=== PATIENT | female | born 1995 | race Caucasian/White ===

== ENCOUNTER → 2018-05-05 | Outpatient (CLI) | payer OTHER ==
[~2018-05-05] MED LIST: ACYC800 PO; ALBU90OI INH; ALPR1 PO; ASCO500 PO; AZIT250 PO; CEPH500 PO; DIAZ5 PO; DOCU100 PO; FERR325; HYDACE5 PO; HYDACE5325 PO; IBUP800 PO; LITH300C PO; LITH300ER; Macrobid 100 M100 MG PO; NAPR500 PO; NITR50 PO; ONDA4 PO; PHENA200 PO; PROM25 PO; Percocet 5-3251 EACH PO; SULTRIDS PO; TRAM50 PO; Verotin-Gr Cap1 EACH
== END | disposition home or self-care (01) ==
LOC: LAB SHORT 19:31 → LAB EV 19:31
DX: L02.01 Cutaneous abscess of face (principal)
CPT/HCPCS: 87070; 87077; 87147; 87186; 87205

== ENCOUNTER 2018-05-18 04:30 | Inpatient (IN) | payer OTHER ==
[~2018-05-18] VITALS: Ht 167.6 cm; Wt 86.3 kg
[2018-05-18 06:03] LABS: BASOPHILS ABSOLUTE AUTO 0.03 K/mm3 (0.00-0.23); BASOPHILS PERCENT AUTO 1 % (0-2); EOSINOPHILS PERCENT AUTO 2 % (0-6); Hematocrit 29.9 % (33.0-51.0); Hemoglobin 10.2 g/dL (11.5-16.0); IMMATURE GRAN ABSOLUTE AUTO 0.01 K/mm3 (0.00-0.10); IMMATURE GRAN PERCENT AUTO 0 % (0-1); LYMPHOCYTES ABSOLUTE AUTO 1.94 K/mm3 (0.84-5.20); LYMPHOCYTES PERCENT AUTO 32 % (21-46); MONOCYTES PERCENT AUTO 8 % (4-13); Mean Corpuscular HGB Conc 34.1 g/dL (31.5-36.5); Mean Corpuscular Volume 91 fL (80-100); Mean Platelet Volume 10.8 fL (9.1-12.4); NEUTROPHILS ABSOLUTE AUTO 3.46 K/mm3 (1.96-9.15); NEUTROPHILS PERCENT AUTO 57 % (41-73); Platelet Count 257 K/mm3 (150-400); RDW Coefficient Variation 12.3 % (11.7-14.2); RDW Standard Deviation 40.8 fL (35.1-46.3); Red Blood Cell Count 3.29 M/mm3 (3.80-5.20); White Blood Cell Count 6.04 K/mm3 (4.00-11.30)
[2018-05-18 06:30] LABS: Alanine Aminotransfer (ALT/SGP 10 U/L (12-78); Albumin, Blood 2.5 g/dL (3.4-5.0); Albumin/Globulin Ratio 0.6 (0.8-1.8); Alk Phos 195 U/L (50-136); Anion Gap 10 mmol/L (6-16); Aspartate Aminotrans (AST/SGOT 10 U/L (12-37); Bilirubin, Total 0.2 mg/dL (0.1-1.0); Blood Urea Nitrogen 6 mg/dL (8-24); Bun/Creatinine Ratio 9.4 (12.0-20.0); CO2, Blood 21 mmol/L (21-32); Calcium, Blood 8.2 mg/dL (8.5-10.1); Chloride, Blood 109 mmol/L (98-108); Creatinine, Blood 0.64 mg/dL (0.40-1.00); Globulin, Blood 4.1 g/dL (2.2-4.0); Glomerular Filtration Rate >60 (60-); Glucose, Blood 86 mg/dL (70-99); Potassium, Blood 3.8 mmol/L (3.5-5.5); Sodium, Blood 140 mmol/L (136-145); Total Protein, Blood 6.6 g/dL (6.4-8.2)
[2018-05-18 06:47] LABS: U Amphetamine Screen Not Detected; U Barbituate Screen Not Detected; U Benzodiazapine Screen Not Detected; U Buprenorphine Screen Not Detected; U Cannabinoids Screen Not Detected; U Cocaine Screen Not Detected; U Methadone Screen Not Detected; U Methamphetamine Screen Not Detected; U Opiates Screen Not Detected; U Oxycodone Screen DETECTED; U Phencyclidine Screen Not Detected; U Propoxyphene Screen Not Detected
[2018-05-18] MEDS ORDERED: Verotin-Gr Cap1 EACH PO (08:29)
[2018-05-19 05:38] LABS: Hematocrit 24.5 % (33.0-51.0); Hemoglobin 8.3 g/dL (11.5-16.0); Mean Corpuscular HGB 31.6 pg (26.0-34.0); Mean Corpuscular HGB Conc 33.9 g/dL (31.5-36.5); Mean Corpuscular Volume 93 fL (80-100); Platelet Count 190 K/mm3 (150-400); RDW Coefficient Variation 12.4 % (11.7-14.2); RDW Standard Deviation 42.5 fL (35.1-46.3); Red Blood Cell Count 2.63 M/mm3 (3.80-5.20); White Blood Cell Count 8.13 K/mm3 (4.00-11.30)
[2018-05-19 10:09] LABS: HBSAG SCREEN Negative (Negative)
[2018-05-19] MEDS ORDERED: IBUP800 PO (17:20)
[2018-05-20 08:11] LABS: HIV SCREEN 4TH GENERATION WRFX Non Reactive (Non Reactive)
== END 2018-05-19 18:26 | disposition home or self-care (01) | DRG 775 ==
LOC: OBS 04:30 → BC 04:30 → OBS 06:32 → BC 06:34
PROVIDERS: Obstetrics & Gynecology
PROC: 10E0XZZ Delivery of Products of Conception, External Approach (ICD-10-PCS; principal; 2018-05-18)
PROC: 0HQ9XZZ Repair Perineum Skin, External Approach (ICD-10-PCS; 2018-05-18)
PROC: 3E0R3BZ Introduction of Anesthetic Agent into Spinal Canal, Percutaneous Approach (ICD-10-PCS; 2018-05-18)
DX: O70.0 First degree perineal laceration during delivery (principal); Z3A.40 40 weeks gestation of pregnancy; Z37.0 Single live birth; Z88.1 Allergy status to other antibiotic agents; Z88.0 Allergy status to penicillin
CPT/HCPCS: 36415; 51702; 59025; 80053; 85025; 85027; 86592; 86762; 86850; 86900; 86901; 87081; 87653; J1885; J2590; J7120

== ENCOUNTER 2018-09-04 18:47 | Emergency (ER) | payer MEDICAID ==
[~2018-09-04] VITALS: Ht 165.1 cm; Wt 79.4 kg
[~2018-09-04 18:47] MED LIST changes: +Verotin-Gr Cap1 EACH PO
[2018-09-04] MEDS ORDERED: Vibramycin100 MG PO (20:19)
[2018-09-04] MEDS ORDERED: TRAM50 PO (20:19)
== END 2018-09-04 20:24 | disposition home or self-care (01) ==
LOC: ER 18:47
DX: L03.012 Cellulitis of left finger (principal); Z88.0 Allergy status to penicillin; Z88.1 Allergy status to other antibiotic agents; F17.200 Nicotine dependence, unspecified, uncomplicated
CPT/HCPCS: 99282

== ENCOUNTER 2019-04-03 21:05 | Emergency (ER) | payer OTHER ==
[~2019-04-03] VITALS: Ht 167.6 cm; Wt 77.1 kg
[~2019-04-03 21:05] MED LIST changes: +Vibramycin100 MG PO
[2019-04-03] MEDS ORDERED: GABA100 PO (21:48)
[2019-04-03] MEDS ORDERED: PROM25 PO (21:49)
[2019-04-03] MEDS ORDERED: TRAZ50 PO (21:49)
[2019-04-03] MEDS ORDERED: Monodox100 MG PO (22:05)
== END 2019-04-03 22:16 | disposition home or self-care (01) ==
LOC: ER 21:05
DX: L03.116 Cellulitis of left lower limb (principal); Z88.0 Allergy status to penicillin; Z88.1 Allergy status to other antibiotic agents; Z88.2 Allergy status to sulfonamides; Z79.899 Other long term (current) drug therapy; F31.9 Bipolar disorder, unspecified; F17.200 Nicotine dependence, unspecified, uncomplicated
CPT/HCPCS: 99283

== ENCOUNTER 2020-10-19 20:07 | Inpatient (IN) | payer OTHER ==
[~2020-10-19] VITALS: Ht 165.1 cm; Wt 97.3 kg
[~2020-10-19 20:07] MED LIST changes: +GABA100 PO; +Monodox100 MG PO; +TRAZ50 PO
[2020-10-19 21:10] LABS: BASOPHILS ABSOLUTE AUTO 0.02 K/mm3 (0.00-0.23); BASOPHILS PERCENT AUTO 0 % (0-2); EOSINOPHILS ABSOLUTE AUTO 0.06 K/mm3 (0.00-0.68); EOSINOPHILS PERCENT AUTO 1 % (0-6); Hematocrit 24.1 % (33.0-51.0); Hemoglobin 7.8 g/dL (11.5-16.0); IMMATURE GRAN ABSOLUTE AUTO 0.01 K/mm3 (0.00-0.10); IMMATURE GRAN PERCENT AUTO 0 % (0-1); LYMPHOCYTES ABSOLUTE AUTO 1.46 K/mm3 (0.84-5.20); LYMPHOCYTES PERCENT AUTO 26 % (21-46); MONOCYTES ABSOLUTE AUTO 0.41 K/mm3 (0.16-1.47); MONOCYTES PERCENT AUTO 7 % (4-13); Mean Corpuscular HGB 28.3 pg (26.0-34.0); Mean Corpuscular HGB Conc 32.4 g/dL (31.5-36.5); Mean Corpuscular Volume 87 fL (80-100); Mean Platelet Volume 9.9 fL (9.1-12.4); NEUTROPHILS ABSOLUTE AUTO 3.68 K/mm3 (1.96-9.15); NEUTROPHILS PERCENT AUTO 65 % (41-73); Platelet Count 234 K/mm3 (150-400); RDW Coefficient Variation 12.5 % (11.7-14.2); RDW Standard Deviation 39.2 fL (35.1-46.3); Red Blood Cell Count 2.76 M/mm3 (3.80-5.20); White Blood Cell Count 5.64 K/mm3 (4.00-11.30)
[2020-10-19] MEDS ORDERED: BUPRENORPHINE HC2 MG (21:12)
[2020-10-19] MEDS ORDERED: BUPRENORPHINE HC2 MG SL (21:13)
[2020-10-19 21:57] LABS: U Amphetamine Screen Not Detected; U Barbituate Screen Not Detected; U Benzodiazapine Screen Not Detected; U Buprenorphine Screen DETECTED; U Cannabinoids Screen Not Detected; U Cocaine Screen Not Detected; U Methadone Screen Not Detected; U Methamphetamine Screen Not Detected; U Opiates Screen Not Detected; U Oxycodone Screen Not Detected; U Phencyclidine Screen Not Detected; U Propoxyphene Screen Not Detected
--- NOTE | 2020-10-20 18:14 | NUR ---
1450- Pt continues to have heavy bleeding. Update to CNM who is in house. Methergine IM given. CNM placed rectal cyto at this time. Stage I hemorrhage, no O2 needed at this time and pt declines warm blankets. VSS. Provider out of room and pt continues to have heavy bleeding. QBL 695. Update to provider, who does a vaginal sweep at this time and manually removes multiple small clots. 2nd bag of Pitocin hanging. 1645- CNM called about pt's continued heavy bleeding, VSS. New order to give 300mcg Cytotec and continue to monitor. 171- update to CNM about pt's continued bleeding, last pad 325. New order to do another bag of pitocin at 250cc/hr and give hemabate with immodium. Pt up to bathroom with assistance of 2RNs and sound recording technician, tolerated well. 1724- RN call to CNM asking if would like labs drawn sooner than AM, states okay for 0500 since pt asymptomatic, if becomes symptomatic, can draw sooner. Per rn charge pt okay not to be on recurring VS as they have remained stable t/o. 1800- Update to CNM regarding pt's bleeding seeming to slow but when attempting to sit up in bed, pt felt dizzy, lightheaded and nauseaus. Order to do CBC now and call with results. Total QBL at this time 1679.
[2020-10-20 18:51] LABS: Hematocrit 18.7 % (33.0-51.0); Hemoglobin 6.1 g/dL (11.5-16.0); Mean Corpuscular HGB Conc 32.6 g/dL (31.5-36.5); Mean Corpuscular Volume 89 fL (80-100); Mean Platelet Volume 10.4 fL (9.1-12.4); Platelet Count 197 K/mm3 (150-400); RDW Coefficient Variation 12.4 % (11.7-14.2); RDW Standard Deviation 39.5 fL (35.1-46.3); White Blood Cell Count 6.99 K/mm3 (4.00-11.30)
--- NOTE | 2020-10-21 00:33 | NUR ---
2049-PT ID VERFIED USING NAME AND WITH 2ND RN AT BEDSIDE, ALSO VERIFIED THAT BLOOD PRODUCT MATCHED PT "F" AND "M" NUMBER ON PT WRISTBAND. BLOOD PRODUCT ALSO SCANNED THROUGH [employer] TO FURTHER VERIFY CORRECT PRODUCT FOR TRANSFUSION. VERIFICATION PROCESS PERFORMED VERBALLY WITH PT INTERACTION AND CONFIRMATION OF CORRECT IDENTIFICATION. TRANSFUSION START TIME 2049. BASELINE VITALS AT BEGINNING OF TRANSFUSION ARE BP 116/56, PULSE 67, TEMP. 98.6 AND RESPIRATIONS 16. BREATH SOUNDS ARE CLEAR TO AUSCULTATION BIALTERALLY. THIS YARD MOTOR OPERATOR REMAINED AT BEDSIDE FOR INITIAL 15 MINUTES OF TRANSFUSION. PT REMAINS STABLE, BREATH SOUNDS REMAIN CTA, PT MAKES NO COMPLAINTS AT THIS TIME. PAS BOOTS APPLIED AT THIS TIME. 2107-BP 119/76, PULSE 66, TEMP 98.4, RESPIRATIIONS 16. BREATH SOUNDS REMAIN CTA, RATE OF TRANSFUSION INCREASED AT THIS TIME. 2121-BP 112/76, PULSE 72, TEMP 98.4, RESP. 16 2134-BP 115/77, PULSE 75, TMEP 97.5, RESP 16 2149-BP 112/67, PULSE 61, TEMP 98.2, RESP 16 2200-TEMP 98.2 2230-BP 110/55, PULSE 64 2242-TEMP 98.4 225-TRANSFUSION END TIME. TOTAL VOLUME PRBC TRANSFUSED IS 320ML, FLUSHED WITH 60ML NORMAL SALINE. BREATH SOUNDS REMAIN CTA. PT MAKES NO COMPLAINTS 2255-BP 109/63, PULSE 67, TEMP 98.1, RESP 16
--- NOTE | 2020-10-21 00:50 | NUR ---
8187-PT CALLS THIS ADJUNCT PHLEBOTOMY INSTRUCTOR TO ROOM. PT REPORTS SHE FELT LIKE SHE "HAD TO PEE" AND USED BEDPAN. PT HAD BM AND PASSED A CLOT AT THIS TIME. PT REQUESTING TO GET UP OUT OF BED SHORTLY AFTER. PT BLEEDING ASSESSED AND NO FURTHER BLEEDING OR CLOTS, FUNDUS IS FIRM. PT ASSISTED OUT OF BED WITH 2ND STAFF MEMBER NATACHA CHAUDHARI. PT TOLERATES WELL, SCANT BLEEDING.
[2020-10-21 05:21] LABS: Hematocrit 18.4 % (33.0-51.0); Mean Corpuscular HGB 28.6 pg (26.0-34.0); Mean Corpuscular HGB Conc 32.6 g/dL (31.5-36.5); Mean Corpuscular Volume 88 fL (80-100); Mean Platelet Volume 10.5 fL (9.1-12.4); Platelet Count 177 K/mm3 (150-400); RDW Coefficient Variation 13.1 % (11.7-14.2); RDW Standard Deviation 41.1 fL (35.1-46.3); White Blood Cell Count 8.31 K/mm3 (4.00-11.30)
--- NOTE | 2020-10-21 05:36 | NUR ---
0530-PROVIDER Renee ZARATE CNM UPDATED WITH PT 0500 LAB RESULTS, BP AND URINE OUTPUT. PT STATES SHE IS FEELING BETTER AND DESIRES TO BE UP AND MOVING AROUND MORE THIS AM. NO ORDERS GIVEN AT THIS TIME. PROVIDER TO SEE PT IN AM ROUNDS.
--- NOTE | 2020-10-21 15:30 | NUR ---
RN/LC ROUNDED TO HELP W/ . PT STATES BABY B IS WELL, BABY A IS FEELING UNCOORDINATED WITH FEEDING. INSTRUCT/DEMO ORAL EXERCISES TO HELP COORDINATE SUCKING. INSTRUCTED PT ON SUPPLY/DEMAND SYSTEM OF AND GETTING BABIES TO THE BREAST EVERY 2-3 HOURS AND OR SUPPLEMENTING W/ EBM OR FORMULA. FURTHER LC OFFERED. RN WILL ROUND AGAIN IN THE MORNING.
[2020-10-22 05:47] LABS: Hematocrit 18.7 % (33.0-51.0); Hemoglobin 6.2 g/dL (11.5-16.0); Mean Corpuscular HGB 29.1 pg (26.0-34.0); Mean Corpuscular HGB Conc 33.2 g/dL (31.5-36.5); Mean Corpuscular Volume 88 fL (80-100); Mean Platelet Volume 10.5 fL (9.1-12.4); Platelet Count 195 K/mm3 (150-400); RDW Coefficient Variation 13.9 % (11.7-14.2); RDW Standard Deviation 42.1 fL (35.1-46.3); Red Blood Cell Count 2.13 M/mm3 (3.80-5.20); White Blood Cell Count 6.99 K/mm3 (4.00-11.30)
[2020-10-22 06:25] LABS: Alanine Aminotransfer (ALT/SGP 13 U/L (12-78); Albumin, Blood 1.8 g/dL (3.4-5.0); Albumin/Globulin Ratio 0.6 (0.8-1.8); Alk Phos 126 U/L (50-136); Anion Gap 6 mmol/L (6-16); Aspartate Aminotrans (AST/SGOT 19 U/L (12-37); Bilirubin, Total 0.2 mg/dL (0.1-1.0); Blood Urea Nitrogen 8 mg/dL (8-24); Bun/Creatinine Ratio 10.9 (12.0-20.0); CO2, Blood 24 mmol/L (21-32); Calcium, Blood 7.8 mg/dL (8.5-10.1); Chloride, Blood 111 mmol/L (98-108); Creatinine, Blood 0.74 mg/dL (0.40-1.00); Globulin, Blood 2.8 g/dL (2.2-4.0); Glomerular Filtration Rate >60 (60-); Glucose, Blood 94 mg/dL (70-99); Potassium, Blood 4.2 mmol/L (3.5-5.5); Sodium, Blood 141 mmol/L (136-145); Total Protein, Blood 4.6 g/dL (6.4-8.2)
[2020-10-22] MEDS ORDERED: Acetaminophen325 M1 PO (12:31)
[2020-10-22] MEDS ORDERED: DOCU100 PO (12:32)
[2020-10-22] MEDS ORDERED: PREPARATION H1 EAC2 TOP (12:33)
[2020-10-22] MEDS ORDERED: PRENATAL TABLE1 EAC2 PO (12:33)
[2020-10-22] MEDS ORDERED: IBUP800 PO (12:33)
--- NOTE | 2020-10-22 13:04 | NUR ---
DISCHARGE BOARDER STATUS MOTHER EDUCATED ON AND RECEIVED PRINTED INSTRUCTIONS ON MATERNAL CARE + GIVEN HARD RX FOR MOTRIN + COLACE. IV DC'D. PPFU SCHEDULED. MOTHER VERBALIZED AN UNDERSTANDING OF ALL INSTRUCTIONS + BOARDER STATUS.
== END 2020-10-22 13:15 | disposition home or self-care (01) | DRG 806 ==
LOC: OBS 20:07 → BC 20:23
PROVIDERS: ADMIT Advanced Practice Midwife
PROC: 3E0P7VZ Introduction of Hormone into Female Reproductive, Via Natural or Artificial Opening (ICD-10-PCS; 2020-10-19)
PROC: 10E0XZZ Delivery of Products of Conception, External Approach (ICD-10-PCS; principal; 2020-10-20)
PROC: 3E033VJ Introduction of Other Hormone into Peripheral Vein, Percutaneous Approach (ICD-10-PCS; 2020-10-20)
PROC: 10907ZC Drainage of Amniotic Fluid, Therapeutic from Products of Conception, Via Natural or Artificial Opening (ICD-10-PCS; 2020-10-20)
PROC: 30233N1 Transfusion of Nonautologous Red Blood Cells into Peripheral Vein, Percutaneous Approach (ICD-10-PCS; 2020-10-20)
PROC: 00HU33Z Insertion of Infusion Device into Spinal Canal, Percutaneous Approach (ICD-10-PCS; 2020-10-20)
PROC: 3E0R3BZ Introduction of Anesthetic Agent into Spinal Canal, Percutaneous Approach (ICD-10-PCS; 2020-10-20)
DX: O36.5931 Maternal care for other known or suspected poor fetal growth, third trimester, fetus 1 (principal); O72.1 Other immediate postpartum hemorrhage; Z37.2 Twins, both liveborn; O30.043 Twin pregnancy, dichorionic/diamniotic, third trimester; Z3A.37 37 weeks gestation of pregnancy; O90.81 Anemia of the puerperium; D64.9 Anemia, unspecified; O99.214 Obesity complicating childbirth; E66.9 Obesity, unspecified; O99.344 Other mental disorders complicating childbirth; F41.9 Anxiety disorder, unspecified; F43.10 Post-traumatic stress disorder, unspecified
CPT/HCPCS: 0241U; 36415; 36430; 51702; 76815; 80053; 85025; 85027; 86850; 86900; 86901; 86923; 88307; A9270; G0480; J1720; J1885; J2001; J2210; J2405; J2590; J3010; J7030; J7120; P9016

== ENCOUNTER 2023-04-04 19:03 | Emergency (ER) | payer OTHER ==
[~2023-04-04] VITALS: Ht 167.6 cm; Wt 97.5 kg
[~2023-04-04 19:03] MED LIST changes: +Acetaminophen325 M1 PO; +BUPRENORPHINE HC2 MG; +BUPRENORPHINE HC2 MG SL; +PRENATAL TABLE1 EAC2 PO; +PREPARATION H1 EAC2 TOP
[2023-04-04 19:23] VITALS: BP 120/85
== END 2023-04-04 20:49 | disposition home or self-care (01) ==
LOC: ER 19:03
DX: S50.11XA Contusion of right forearm, initial encounter (principal); S90.415A Abrasion, left lesser toe(s), initial encounter; M25.521 Pain in right elbow; M25.511 Pain in right shoulder; M25.551 Pain in right hip; W22.8XXA Striking against or struck by other objects, initial encounter; Z88.0 Allergy status to penicillin; Z88.1 Allergy status to other antibiotic agents; Z88.2 Allergy status to sulfonamides; Z79.899 Other long term (current) drug therapy; F43.10 Post-traumatic stress disorder, unspecified; F17.200 Nicotine dependence, unspecified, uncomplicated
CPT/HCPCS: 73080; 73090; 73110; 73502; 99283-25

== ENCOUNTER 2023-05-17 23:43 | Emergency (ER) | payer OTHER ==
[~2023-05-17] VITALS: Ht 167.6 cm; Wt 90.7 kg
[2023-05-18 00:03] VITALS: BP 146/104
[2023-05-18] MEDS ORDERED: Cleocin HCl150 MG PO (00:17)
== END 2023-05-18 00:20 | disposition home or self-care (01) ==
LOC: ER 23:43
DX: K04.7 Periapical abscess without sinus (principal); F17.200 Nicotine dependence, unspecified, uncomplicated; Z88.1 Allergy status to other antibiotic agents; Z88.0 Allergy status to penicillin; Z88.2 Allergy status to sulfonamides
CPT/HCPCS: 99282